=== PATIENT | male | born 1945 | race Two or more races ===

== ENCOUNTER 2025-05-24 09:14 | Emergency (ER) | payer OTHER ==
[~2025-05-24] VITALS: Ht 185.4 cm; Wt 63.5 kg
[2025-05-24] MEDS ORDERED: 0.9 % SODIUM CHLORIDE 1,000 ML IV SCH (10:00)
[2025-05-24] MEDS ORDERED: SUCRALFATE 1 G TABLET PO ONE (10:00)
[2025-05-24 10:10] LABS: BASO % 0.2 % (0.1-1.2); EOS # 0.00 (0.04-0.54); EOS % 0.0 % (0.7-7.0); LYMPH # 0.52 (1.18-3.74); LYMPH % 5.6 % (19.3-53.1); MEAN PLATELET VOLUME 10.80 fl (9.4-12.4); MONO # 0.29 (0.24-0.82); MONO % 3.1 % (4.7-12.5); NEUT # 8.50 (1.56-6.13); NEUT % 90.8 % (34.0-71.1); RED CELL DISTRIBUTION WIDTH 14.7 % (11.6-14.4)
[2025-05-24 10:35] LABS: BUN CREA RATIO 11.0 (7.0-25.0); CREATININE SERUM 1.01 mg/dL (0.70-1.30); GFR 71.07; GLUCOSE FASTING 110.0 mg/dL (65-100); OSMOLALITY SERUM 281.0 MOSM/KG (275-295)
[2025-05-24 12:38] LABS: URINE APPEARANCE Clear; URINE BILIRRUBIN Negative (NEGATIVE); URINE BLOOD Trace; URINE COLOR Yellow; URINE GLUCOSE Negative (NEGATIVE); URINE KETONE Negative (NEGATIVE); URINE LEUKOCYTE Negative; URINE NITRATE Negative; URINE PROTEIN Trace (NEGATIVE); URINE UROBILINOGEN 0.2 E.U./dl
[2025-05-24 12:42] LABS: URINE RBC 35.6 uL (0.0-20.8); URINE WBC 1.8 uL (0.0-23.2)
[2025-05-24 12:45] LABS: URINE BACTERIA 1.1 uL (0.0-1933); URINE CAST 0.00 uL (0.0-1.40); URINE EPITHELIAL CELLS 1.0 uL (0.0-38.8)
== END 2025-05-24 14:14 | disposition home or self-care (01) ==
LOC: ER 09:14
PROVIDERS: Emergency Medicine
DX: K82.4 Cholesterolosis of gallbladder (principal); R10.9 Unspecified abdominal pain
CPT/HCPCS: 36415; 76700; 96365; 96366; 99284; J7030